=== PATIENT | female | born 1990 | race Two or more races ===

== ENCOUNTER 2021-10-06 09:32 | Emergency (ER) | payer MEDICAID ==
[~2021-10-06] VITALS: Ht 162.6 cm; Wt 83.9 kg
[2021-10-06 09:39] VITALS: BP 142/82
[2021-10-06] MEDS ORDERED: BENZ-13 PO (10:10)
[2021-10-06] MEDS ORDERED: ONDA4TAB5 PO (10:10)
== END 2021-10-06 10:24 | disposition home or self-care (01) ==
LOC: ER 09:34
DX: U07.1 COVID-19 (principal); R11.2 Nausea with vomiting, unspecified; R19.7 Diarrhea, unspecified; R03.0 Elevated blood-pressure reading, without diagnosis of hypertension
CPT/HCPCS: 99283; C9803; U0003

== ENCOUNTER → 2024-09-17 | Emergency (ER) | payer MEDICAID, OTHER ==
[~2024-09-17] VITALS: Ht 162.6 cm; Wt 86.2 kg
[~2024-09-17] MED LIST: BENZ-13 PO; FAMOTIDINE (20 MG) 20 MG TABLET ONE; LIDOCAINE VISCOUS 2% UD 15 ML UDC ONE; MAG HYDROX/AL HYDROX/SIMETH 30 ML UDC ONE; OMEP20TA20 PO; ONDA4TAB5 PO
[2024-09-17] MEDS: LIDOCAINE VISCOUS 2% UD 15 ML UDC MM ONE (09:57)
[2024-09-17] MEDS: FAMOTIDINE (20 MG) 20 MG TABLET PO ONE (09:57)
[2024-09-17] MEDS: MAG HYDROX/AL HYDROX/SIMETH 30 ML UDC PO ONE (09:57)
[2024-09-17 10:08] VITALS: BP 138/86; TEMP 97.9; O2SAT 99
== END ==
LOC: ER 09:12
DX: K21.9 Gastro-esophageal reflux disease without esophagitis (principal); R10.13 Epigastric pain; Z79.899 Other long term (current) drug therapy